=== PATIENT | female | born 1985 ===

== ENCOUNTER 2021-12-10 13:36 | Outpatient (REF) | payer OTHER, SELFPAY ==
[2021-12-10 17:29] LABS: Alanine Aminotransferase 33 U/L (0-31); Anion Gap 13 (12-20); Aspartate Amino Transferase 41 U/L (5-31); Blood Urea Nitrogen 10 mg/dL (9-16); Carbon Dioxide 25 mmol/L (22-29); Chloride 99 mmol/L (96-108); Cholesterol 184 mg/dL; Estimated Glomerular Filt Rate > 60; Glucose Fasting 233 mg/dL (60-99); HDL Cholesterol 38 mg/dL; LDL Cholesterol Calculated 123 mg/dl; Potassium 4.3 mmol/L (3.3-5.1); Sodium 133 mmol/L (135-145); Triglycerides 115 mg/dL
[2021-12-10 17:37] LABS: Creatinine Urine 153.21 mg/dL; Microalbum/Creatinine Ratio Ur 27.4 ug/mg cr
== END 2021-12-10 13:37 | disposition home or self-care (01) ==
LOC: HO.HMGCLDS 13:36
PROVIDERS: Visit Provider Internal Medicine
DX: E66.01 Morbid (severe) obesity due to excess calories (principal); E08.65 Diabetes mellitus due to underlying condition with hyperglycemia
CPT/HCPCS: 36415; 80048; 80061; 82043; 84450; 84460

== ENCOUNTER 2022-12-12 09:33 | Outpatient (REF) | payer OTHER, SELFPAY | END 2022-12-12 09:34 | disposition home or self-care (01) | LOC: HO.HMGCLDS 09:33 | PROVIDERS: PCP Internal Medicine; Visit Provider Internal Medicine | DX: E11.65 Type 2 diabetes mellitus with hyperglycemia (principal); I10 Essential (primary) hypertension | CPT/HCPCS: 36415; 83036; 84450; 84460 ==

== ENCOUNTER 2023-07-29 09:09 | Outpatient (REF) | payer OTHER, SELFPAY ==
[2023-07-29 11:42] LABS: Estimated Average Glucose 189 mg/dL; Hemoglobin A1c % 8.2 % (<6.0)
[2023-07-29 12:04] LABS: Alanine Aminotransferase 24 U/L (0-31); Anion Gap 12 (12-20); Aspartate Amino Transferase 22 U/L (5-31); Blood Urea Nitrogen 9 mg/dL (9-16); Calcium 8.4 mg/dL (8.4-10.2); Carbon Dioxide 31 mmol/L (22-29); Chloride 100 mmol/L (96-108); Cholesterol 170 mg/dL (<200); Estimated Glomerular Filt Rate > 60; Glucose Fasting 195 mg/dL (60-99); HDL Cholesterol 35 mg/dL (>40); LDL Cholesterol Calculated 110 mg/dL (<100); Potassium 3.8 mmol/L (3.3-5.1); Sodium 139 mmol/L (135-145); Triglycerides 126 mg/dL (<150)
[2023-07-29 12:17] LABS: Creatinine Urine 198.37 mg/dL; Microalbum/Creatinine Ratio Ur 13.6 ug/mg cr (<30)
== END 2023-07-29 09:10 | disposition home or self-care (01) ==
LOC: HO.HMGCLDS 09:09
PROVIDERS: PCP Internal Medicine; Visit Provider Internal Medicine
DX: I10 Essential (primary) hypertension (principal); E08.65 Diabetes mellitus due to underlying condition with hyperglycemia; E66.01 Morbid (severe) obesity due to excess calories
CPT/HCPCS: 36415; 80048; 80061; 82043; 82570; 83036; 84450; 84460

== ENCOUNTER 2024-02-18 08:38 | Outpatient (REF) | payer OTHER, SELFPAY ==
[2024-02-18 10:41] LABS: Estimated Average Glucose 192 mg/dL; Hemoglobin A1c % 8.3 % (<6.0)
[2024-02-18 10:51] LABS: Alanine Aminotransferase 19 U/L (0-31); Anion Gap 13 (12-20); Aspartate Amino Transferase 20 U/L (5-31); Blood Urea Nitrogen 9 mg/dL (9-16); Calcium 9.5 mg/dL (8.4-10.2); Carbon Dioxide 26 mmol/L (22-29); Chloride 101 mmol/L (96-108); Cholesterol 139 mg/dL (<200); Estimated Glomerular Filt Rate > 60; Glucose Fasting 202 mg/dL (60-99); HDL Cholesterol 41 mg/dL (>40); LDL Cholesterol Calculated 81 mg/dL (<100); Potassium 4.3 mmol/L (3.3-5.1); Sodium 136 mmol/L (135-145); Triglycerides 89 mg/dL (<150)
== END 2024-02-18 08:39 | disposition home or self-care (01) ==
LOC: HO.HMGCLDS 08:38
PROVIDERS: PCP Internal Medicine; Visit Provider Internal Medicine
DX: I10 Essential (primary) hypertension (principal); E08.65 Diabetes mellitus due to underlying condition with hyperglycemia; E66.01 Morbid (severe) obesity due to excess calories
CPT/HCPCS: 36415; 80048; 80061; 83036; 84450; 84460

== ENCOUNTER → 2024-02-22 09:59 | Outpatient (BNVA) | payer OTHER, SELFPAY | PROVIDERS: PCP Internal Medicine; Visit Provider Internal Medicine ==

== ENCOUNTER 2024-12-07 12:10 | Outpatient (REF) | payer OTHER, SELFPAY ==
--- OUTSIDE RECORDS SUMMARY | 2024-12-07 12:36 | XMS_ITS | Clinical Summary ---
Author Organization [employer] Address [address] [place] [address] Care Team Providers Care Manager Of Case Management Name Role Phone Unavailable Primary Care Provider Unavailabl e Allergies No known active allergies Medications clonazePAM (KlonoPIN) 0.5 MG tablet Take 0.5 mg by mouth if needed each day. 023 Active levocetirizin e (Xyzal) 5 MG tablet TAKE 1 TABLET BY MOUTH EVERY EVENING NEEDED FOR ALLERGY SYMPTOMS 023 Active lisinopril-hy droCHLOROthia zide 10-12.5 MG tablet Take 1 tablet by mouth in the morning. 023 Active metFORMIN XR (Glucophage-X R) 500 MG 24 hr tablet Take 500 mg by mouth 2 times daily. 023 Active venlafaxine XR (Effexor XR) 37.5 MG 24 hr capsule Take by mouth. A ctive Trulicity 0.75 MG/0.5ML solution pen-injector INJECT 0.75 MG SUBCUTANEOUSLY EVERY WEEK 024 Active rosuvastatin (Crestor) 5 MG tablet TAKE 1 TABLET BY MOUTH EVERY DAY FOR 3 MONTHS 024 Active montelukast (Singulair) 10 MG tablet Take by mouth. Ac tive FREESTYLE LITE test strip CHECK FASTING BLOOD SUGAR TWICE A DAY BEFORE A MEAL 025 Active FreeStyle lancets CHECK BLOOD SUGAR DIRECTED TWICE A DAY BEFORE MEALS 024 Active ibuprofen 600 MG tablet Take 1 tablet (600 mg) by mouth every 6 (six) hours if needed for mild pain for up to 20 doses. 20 tablet 025 Active Sodium Fluoride 5000 Sensitive 1.1-5 % gel PLEASE USE PEA SIZE TO BRUSH YOUR TEETH TWICE DAILY. SPIT, DO NOT RINSE. 100 g 025 Active Sod Fluoride-Pota ssium Nitrate 1.1-5 % paste Please use pea size to brush your teeth twice daily. Spit, do not rinse. 112 g 1 024 2024 Discontinued ibuprofen 600 MG tablet Take 1 tablet (600 mg) by mouth every 6 (six) hours if needed for mild pain for up to 20 doses. 20 tablet 024 2024 Discontinued(R eorder (will not trigger notification to Pharmacy)) amoxicillin (Amoxil) 500 MG capsule Take 1 capsule (500 mg) by mouth every 8 (eight) hours for 7 days. 21 capsule 025 2024 Active Problems Problem Noted Date Diagnosed Date Dental plaque 02/03/2024 Dental calculus 02/03/2024 Encounters Date Type Department Care Team Description 11/20/2024 Refill [facility] [address] [place] [address] Paulina Wahl, BDS 11/15/2024 11:00 AM EDT Office Visit [facility] [address] [place] [address] Jeannine Mills DDS 11/10/2024 Telephone [facility] [address] [place], [place] [phone] Cesia Isabel DMD 10/11/2024 Telephone [facility] [address], [place] [phone] Carlee Rodney appt change (CALLED TO PTS APPT NO ANSWER SO A VOICEMAIL WAS LEFT ) 09/07/2024 8:00 AM EDT Office Visit [facility] [address] [place] [address] Carlee Rodney from Last 3 Months Social History Tobacco Use Types Packs/Day Years Used Date Smoking Tobacco: Never Smokeless Tobacco: Never Tobacco Cessation:Counseling Given: Not Answered Alcohol Use Standard Drinks/Week Comments Yes 0 (1 standard drink = 0.6 oz pur e alcohol) social Comments No Sex and Gender Information Value Date Recorded Sex Assigned at Female 04/06/2022 10:22 AM EDT Legal Sex Female 10:22 AM EDT Gender Identity Female 06/23/2023 8:44 AM EST Sexual Orientation Choose not to disclose 2023 8:44 AM EST Last Filed Vital Signs Vital Sign Reading Time Taken Comments Blood Pressure 124/80 09/07/2024 8:08 AM EDT Pulse 65 02/03/2024 9:53 AM EDT Temperature - - Respiratory Rate - - Oxygen Saturation - - Inhaled Oxygen Concentration - - Weight - - Height - - Body Mass Index - - Plan of Treatment Upcoming Encounters Date Type Department Care Team (Late st Contact Info) Description 03/12/2025 8:00 AM EDT Office Visit [facility] [address] [place] [address] Carlee Rodney Health Maintenance Due Date Last Done Comments Depression Screening 1985 HIV Screening 1987 SDOH Screening 1987 Disability Screening 1987 Alcohol/Substance Use Screening 1999 Family Planning (PISQ) 2002 Hepatitis C Screening 2005 DTaP/Tdap/Td Vaccines (1 - Tdap) 2006 Hepatitis B Vaccines (1 of 3 - 19+ 3-dose series) 2006 Pap Smear 01/24/2008 Cervical Cancer Screening 2017 HPV/Cotest 2017 COVID-19 Vaccine ( season) 2024 Influenza Vaccine (Season Ended) 2025 07/30/2017, 03/19/2016 Dental Oral Exam 03/10/2025 09/07/2024, , 06/23/2023, Additional history exists Dental Prophylaxis 03/10/2025 09/07/2024, 0 02/03/2024, 10/19/2018, Additional history exists Dental X-Ray: Bitewings 09/08/2025 09/08/19, 06/23/2023, 12/28/2018, Additional history exists Tobacco Screening 11/15/2025 11/15/2024 Dental X-Ray: Full Mouth 06/24/2026 06/23/2023, 03/07 Zoster Vaccines (1 of 2) 2037 RSV Patients and Patients Aged 60 years or older (1 - 1-dose 75+ series) 2062 HIB Vaccines Aged Out No longer eligi ble based on patient's age to complete this topic HPV Vaccines Aged Out No longer eligi ble based on patient's age to complete this topic Hepatitis A Vaccines Aged Out No long er eligible based on patient's age to complete this topic IPV Vaccines Aged Out No longer eligi ble based on patient's age to complete this topic Meningococcal B Vaccine Aged Out No l onger eligible based on patient's age to complete this topic Meningococcal Vaccine Aged Out No mitchel sunil eligible based on patient's age to complete this topic Pneumococcal Vaccine: Pediatrics (0 to 5 Years) and At-Risk Patients (6 to 49) Years Aged Out No longer eligible based on patient's age to complete this topic RSV under 20 months Aged Out No longe r eligible based on patient's age to complete this topic Rotavirus Vaccines Aged Out No longer eligible based on patient's age to complete this topic Procedures Procedure Name Priority Date/Time Associated Diagnosis Comments 1 EXTRACTION, ERUPTED TOOTH OR EXPOSED ROOT (ELEVATION/FORCEPS REMOVAL) Routine 11/15/2024 11:00 AM EDT COMPREHENSIVE PERIODONTAL EVALUATION - NEW OR ESTABLISHED PATIENT Routine 09/07/2024 8:00 AM EDT PERIODIC ORAL EVALUATION - ESTABLISHED PATIENT Routine 09/07/2024 8:00 AM EDT INTRAORAL - PERIAPICAL FIRST RADIOGRAPHIC IMAGE Routine 09/07/2024 8:00 AM EDT BITEWINGS - 4 RADIOGRAPHIC IMAGES Routine 09/07/2024 8:00 AM EDT ORAL HYGIENE INSTRUCTIONS Routine 2024 8:00 AM EDT CASE PRESENTATION, DETAILED AND EXTENSIVE TREATMENT PLANNING Routine 09/07/2024 8:00 AM EDT PROPHYLAXIS - ADULT Routine 09/07/2024 8 :00 AM EDT INTRAORAL - COMPLETE SERIES OF RADIOGRAPHIC IMAGES Routine 06/23/2023 1:00 PM EST from Last 3 Months or Most Recently Relevant to Health Maintenance Insurance [facility] MEDICAID STAND ADULT
[2024-12-07 13:39] LABS: Hemoglobin A1C 214.8280 umol/L; Total Hemoglobin (HGBA1C) 3586.0830 umol/L
[2024-12-07 14:12] LABS: Anion Gap 13 (12-20); Aspartate Amino Transferase 30 U/L (5-31); Blood Urea Nitrogen 8 mg/dL (9-16); Calcium 9.1 mg/dL (8.4-10.2); Carbon Dioxide 27 mmol/L (22-29); Chloride 101 mmol/L (96-108); Cholesterol 207 mg/dL (<200); Estimated Glomerular Filt Rate > 60; HDL Cholesterol 45 mg/dL (>40); Potassium 3.9 mmol/L (3.3-5.1); Sodium 137 mmol/L (135-145); Triglycerides 162 mg/dL (<150)
[2024-12-07 14:16] LABS: Microalbum/Creatinine Ratio Ur 7.6 ug/mg cr (<30)
== END 2024-12-07 12:11 | disposition home or self-care (01) ==
LOC: HO.HMGCLDS 12:10
PROVIDERS: PCP Internal Medicine; Visit Provider Internal Medicine
DX: I10 Essential (primary) hypertension (principal); E08.65 Diabetes mellitus due to underlying condition with hyperglycemia; E66.01 Morbid (severe) obesity due to excess calories
CPT/HCPCS: 36415; 80048; 80061; 82043; 82570; 83036; 84450

== ENCOUNTER 2024-12-12 08:56 | Outpatient (AMB) | payer OTHER, SELFPAY ==
[2024-12-12 09:02] VITALS: BP 130/86; PULSE 99; RESP 16; TEMP 36.7; O2SAT 99; BMI 35.2
--- NOTE | 2024-12-12 09:02 | MHC.PC.OV ---
Vital Signs 12/12/24 09:02 Height 5 ft 5.5 in Weight 215 lb BMI 35.2 BP 130/86 Blood Pressure Location Lt brachial Position Sitting Respiration 16 Pulse 99 Pulse Source Pulse Oximeter Temp 98.1 F Temp Source Oral Pulse Oximetry (%) 99 Oxygen Delivery Method Room Air Intake Visit Reasons: med, DM followup per Dr Navarrete Intake Note: Pt is here today for her f/u DM Allergies penicillin V Allergy (Unknown, Verified 12/12/24 09:14) family hx No Known Allergies Allergy (Verified 12/12/24 09:14) Medication List - Last Reconciled 12/12/24 by Shira Reis MD blood sugar diagnostic (FreeStyle Lite Strips) check fasting blood sugar twice a day before a meal blood-glucose meter (FreeStyle Lite Meter kit) As directed dulaglutide (Trulicity) 0.75 mg (0.5 mL) subcut QWEEK lancets (FreeStyle Lancets) check blood sugar As directed twice a day before meals levocetirizine 5 mg PO QPM PRN lisinopril-hydrochlorothiazide 10-12.5 mg 1 tab PO DAILY metformin 1,000 mg PO BIDWMEAL 3 months venlafaxine ER 300 mg (2 x 150 mg) PO QAM Tobacco use date assessed: 12/12/24 Dental Screening Dental Screen Date: 12/12/24 Did you have a dental visit in the last 12 months?: Yes Did you have a dental problem in the last 6 months where you did not have access to dental care?: No Was dental information given to patient?: Patient has dentist HPI med, DM followup per Dr Navarrete HPI Details 39-year-old lady with history of poorly controlled diabetes mellitus, morbid obesity, and hypertension, here today for follow-up. Currently on Trulicity 0.75 mg once weekly which she admits to sometimes forgetting to take, and is on metformin 5000 mg 1 tablet twice a day. She has not really been very compliant with her diet, eats a lot of processed foods and food in the go, but has been more active as she started working at an [employer], is currently on the hourly shift manager. She is overdue for her diabetes retinopathy screening, has an appointment with [facility] in July 2025 already scheduled. Latest fasting labs showed improvement in her diabetes control with hemoglobin A1c now at 7.6%, but fasting lipids showed elevated triglycerides and LDL cholesterol. Blood pressure stable and controlled on lisinopril HCTZ. Complaining of intermittent episodes of sharp pulling pain on dorsal lateral aspect of left foot. This started after accidentally twisting her left foot playing soccer in March 2025. Patient states she gets pain when she is standing or walking for extended periods of time. [facility] Medical History (Updated 12/12/24 @ 09:48 by Shira Reis MD) Environmental and seasonal allergies Mixed dyslipidemia Essential hypertension Anxiety and depression Morbid obesity due to excess calories Diabetes mellitus due to underlying condition, uncontrolled, with hyperglycemia Family History Mother Diabetes mellitus Endometrial cancer Morbid obesity Dyslipidemia Anxiety and depression Essential hypertension Brother Mental health disorder Social History Housing: House Patient Tobacco Use Status: Never used Tobacco e-Cigarette/Vaping Use: Never Used service: No Current occupational status: employed Cognitive needs: No Hearing needs: No Vision needs: Yes Questionnaire PHQ-9 Over the last 2 weeks, how often have you been bothered by any of the following problems? 1. Little interest or pleasure in doing things: not at all 2. Feeling down, depressed, or hopeless: several days 3. Trouble falling or staying asleep, or sleeping too much: several days 4. Feeling tired or having little energy: several days 5. Poor appetite or overeating: not at all 6. Feeling bad about yourself - or that you are a failure or have let yourself or your family down: not at all 7. Trouble concentrating on things, such as reading the newspaper or watching television: not at all 8. Moving or speaking so slowly that other people could have noticed. Or the opposite - being so fidgety or restless that you have been moving around a lot more than usual: not at all 9. Thoughts that you would be better off or of hurting yourself in some way: not at all Total score: 3 Depression Screening Interpretation: Positive (atul Leonard , currently on venlafaxine) Depression Screening Follow-up: Existing condition, In treatment and Community Mental Health Worker F/U Depression Screening Done: Yes 90116 - PHQ-9 Billing: Yes Source: Developed by Drs. Vinod Skinner, Connie Rivera, Carlos Enrique Cruz and colleagues, with an educational hector from [employer]. Thrive Questionnaire Date Thrive assessed: 12/05/24 I am a: Patient What is your living situation today?: I have a steady place to live Within the past 12 months, did the food you bought not last and you didn't have the money to get more?: Sometimes True Within the past 12 months, did you worry whether your food would run out before you got money to buy more?: Sometimes True Do you have trouble paying for medicines?: No Do you have trouble getting transportation to medical appointments?: No Do you have trouble paying your heating and electricity bill?: No Do you have trouble taking care of your child, family member or friend?: No Do you have trouble with day-to-day activities such as bathing, preparing meals, shopping, managing finances, etc.?: No Are you currently unemployed and looking for a job?: Yes Are you interested in more education?: Yes Please select the resources that you would like help with: None Currently or been in a relationship where the following occur: I choose not to answer THRIVE Score: 2 AUDIT C Alcohol Use Questionnaire (AUDIT-C) 1. How often do you have a drink containing alcohol?: Monthly or less 2. How many drinks containing alcohol do you have on a typical day when you are drinking?: 1 or 2 3. How often do you have six or more drinks on one occasion?: Never Total Score: 1 KASEY-7 AMB Questionnaire KASEY-7 Date KASEY - 7 assessed: 12/12/24 Feeling nervous, anxious, or on edge: 1 = Several days Not being able to stop or control worryin = More than half the days Worrying too much about different things: 2 = More than half the days Trouble relaxin = Several days Being so restless that it is hard to sit still: 0 = Not at all Becoming easily annoyed or irritable: 1 = Several days Feeling afraid as if something awful might happen: 0 = Not at all Total KASEY-7 score (0-4 normal; 5-9 mild; 10-14 moderate; 15-21 severe): 7 Source: Developed by Drs. Vinod Skinner, Connie Rivera, Carlos Enrique Cruz and colleagues, with an educational hector from [employer]. KASEY-7 Assessment Billing KASEY-7 Assessment Tool: KASEY-7 Assessment 02201 (Currently atul Leonard, currently on venlafaxine) Review of Systems Const Denies body aches, Denies fatigue, Denies fever(s), Denies headache(s) and Denies weakness Eyes Denies change in vision ENT Denies dizziness, Denies headache(s), Denies nasal congestion and Denies sore throat Card Denies chest pain, Denies lightheadedness, Denies palpitations and Denies dyspnea Resp Denies chest congestion, Denies cough and Denies dyspnea GI Denies abdominal pain, Denies change in bowel habits and Denies heartburn Denies hematuria, Denies urinary frequency, Denies dysuria and Denies urinary urgency Musc Reports as per HPI Skin/Breast Denies rash Neuro Denies dizziness, Denies headache(s) and Denies weakness Psych Reports as per HPI Endo Denies fatigue, Reports polydipsia, Reports polyuria and Denies palpitations Aris/Lymph Reports no additional complaints Aller/Immun Reports seasonal rhinorrhea (Takes levocetirizine) Physical exam (Primary Care) Vital Signs: Last Vital Signs Temp 98.1 F 12/12/24 09:02 Pulse 99 12/12/24 09:02 Resp 16 12/12/24 09:02 BP 130/86 12/12/24 09:02 Pulse Ox 99 12/12/24 09:02 Oxygen Delivery Method Room Air 12/12/24 09:02 BMI result Body Mass Index 35.2 BMI Assessment/Plan discussion: High BMI High, discussed plan: lifestyle, weight reduction, dietary and physical activity Tobacco/Smoking Status: Tobacco use Status Tobacco use date assessed 12/12/24 12/12/24 09:07 Patient Tobacco Use Status Never used Tobacco 12/12/24 09:07 e-Cigarette/Vaping Use Never Used 12/12/24 09:07 PHQ-9: PHQ-9 Score PHQ-9: Total score 3 12/12/24 09:42 Depression Screening Interpretation: Positive (seedewayne Cervanteslilly , currently on venlafaxine) Depression Screening Follow-up: Existing condition, In treatment and Community Mental Health Worker F/U Thrive Assessment: Date of Thrive Assessment Date Thrive assessed 12/05/24 12/12/24 09:07 Currently or been in a relationship where the following occur: I choose not to answer Const General: no acute distress and alert Nutritional Appearance: obese Orientation/consciousness: patient oriented x3 HENMT Ears: external ears normal General nose exam: Normal external nose present and No nasal discharge present Mouth: oropharynx normal and moist mucous membranes Eyes General: appearance normal, both eyes and all related structures Neck Neck: Yes full ROM, Yes no lymphadenopathy and Yes supple Resp Effort & Inspection: normal respiratory effort and able to speak in complete sentences Auscultation: clear to auscultation bilaterally Cardio Rate: regular rate Rhythm: regular rhythm Heart sounds: S1 normal heart sound present and S2 normal heart sound present GI Palpation (GI): Soft to palpation, nontender and no masses Auscultation: normal bowel sounds Back/Spine/Pelvis Back: No back tenderness Skin General skin exam: no rashes or lesions noted Neuro General: patient oriented x3, gait normal, tone normal, moves all extremities, Normal light touch and pain sensation and no focal motor deficits Cranial nerves: Yes CN's II-XII intact bilaterally Cognition (Neuro): normal cognition Extrem Other: Slight tenderness on dorsal lateral aspect of left foot on hyperextension foot General: Yes full ROM, Yes no joint enlargement, Yes no clubbing, cyanosis or edema and Yes no calf tenderness Psych Appearance: grossly normal and well kempt Mental Status: mental status grossly normal Speech and movement: Normal speech and movement present Affect: normal affect Attitude: cooperative Thought process: Normal thought process present Thought content: Normal thought content present Results Reviewed Results Reviewed: Laboratory Tests 12/07/24 12:13 Estimat Average Glucose 171 Hemoglobin A1c % 7.6 H Name: Mirna Villafana Age/Sex: 39/F : 1985 Unit#: [id number] Attend Dr: Shira Reis MD Re12/07/24 Status: DEP REF Location: [facility] Disch: SPEC : [id number] YAMILA: 12/07/24-1213 STATUS: COMP REQ : [id number] RECD: 12/07/24-[address]: Shira Reis MD COMP: 12/07/24-1412 ENTERED: 12/07/24-[address]: ORDERED: Met Prof Fast, AST, Lipid Panel Test Result Flag Reference Sodium 137 135-145 mmol/L Potassium 3.9 3.3-5.1 mmol/L CL 101 96-108 mmol/L CO2 27 22-29 mmol/L Gap 13 12-20 BUN 8 L 9-16 mg/dL Creat 0.56 0.5-1.4 mg/dL eGFR > 60 Chronic Kidney Disease: Estimated GFR < 60 mL/min/1.73m2 Severe Kidney Disease: Estimated GFR < 15 mL/min/1.73m2 FBS 178 H 60-99 mg/dL A fasting glucose of 126 mg/dl or greater on more than one occasion is considered diagnostic of diabetes. CA 9.1 8.4-10.2 mg/dL AST (GOT) 30 5-31 U/L Triglyceride 162 H <150 mg/dL Desirable Triglyceride: less than 150 mg/dL Borderline High Triglyceride 150-199 mg/dL High Triglyceride: 200-499 mg/dL Very High Triglyceride: greater than or equal to 5OO mg/dL Cholesterol 207 H <200 mg/dL Desirable Cholesterol: less than 200 mg/dL Borderline High Cholesterol: 200-239 mg/dL High Cholesterol: greater than 239 mg/dL LDL Calculated 130 H <100 mg/dL Desirable LDL: less than 100 mg/dL Near Optimal/Above Optimal LDL: 110-129 mg/dL Borderline High LDL: 130-159 mg/dL High LDL: 160-189 mg/dL Very High LDL: greater than or equal to 190 mg/dL HDL 45 >40 mg/dL Desirable HDL: greater than 40 mg/dL Note: This HDL assay may give artificially low results in patients with liver disease. Laboratory Tests 12/07/24 12:20 Urine Creatinine 131.53 Urine Microalbumin 10.0 Microalb/Creat Ratio 7.6 Coding Level of Care Code Est Pt Level 4 (94701) Diagnoses Essential hypertension I10 Diabetes mellitus due to underlying condition, uncontrolled, with hyperglycemia E08.65 Morbid obesity due to excess calories E66.01 Chronic pain in left foot M79.672; G89.29 Anxiety and depression F41.9; F32.A Mixed dyslipidemia E78.2 Environmental and seasonal allergies J30.89 Additional Codes KASEY-7 Assessment Billing - KASEY-7 Assessment Tool: KASEY-7 Assessment 82186 ([id number]) PHQ-9 - 60423 - PHQ-9 Billing: Yes ([id number]) Assessment & Plan Assessment & Plan (1) Essential hypertension: Code(s): I10 - Essential (primary) hypertension Category: Medical Plan: Blood pressure at goal of less than 130/80. Continue with lisinopril-HCTZ 10-12.5 mg taken once a day. Reinforced importance of following a low sodium diet, getting regular exercise, and lowering stress levels. (2) Diabetes mellitus due to underlying condition, uncontrolled, with hyperglycemia: Code(s): E08.65 - Diabetes mellitus due to underlying condition with hyperglycemia Category: Medical Plan: Increase dose of Trulicity to 1.5 mg injected once a week, continue with metformin 1000 mg 1 tablet twice a day and reinforced importance of checking glucose levels daily as directed. Reinforced importance of following a diabetic diet and getting regular exercise. He has an appointment for her diabetes retinopathy screening and eye exam on July 2025 at [facility] per patient. Recommended to get yearly flu shot and pneumonia vaccine but patient declined (3) Morbid obesity due to excess calories: Code(s): E66.01 - Morbid (severe) obesity due to excess calories Category: Medical Plan: . Discussed need to increase activity and weight reduction. Recommended focusing on improving health instead of dieting. Mediterranean diet is a healthy diet that helps, limit food high in fat, sugar, and calories. Eat slowly, pay attention to portion sizes, plan your meals ahead of time, start regular physical activity, at least 150 minutes of moderate intensity exercise, or 90 minutes per week of vigorous exercise. Keeping a food diary, tracking what you eat and your physical activity can help assess what improvements you can make. (4) Chronic pain in left foot: Code(s): M79.672 - Pain in left foot; G89.29 - Other chronic pain Plan: X-ray of left foot ordered, try massaging diclofenac gel 1% to affected area 4 times a day as needed only applying Salonpas patch to affected area before going to work at [employer]. (5) Anxiety and depression: Code(s): F41.9 - Anxiety disorder, unspecified; F32.A - Depression, unspecified Category: Medical Plan: Currently followed by psychiatrist, Lynne Leonard, currently on venlafaxine (6) Mixed dyslipidemia: Code(s): E78.2 - Mixed hyperlipidemia Category: Medical Plan: Started on rosuvastatin 5 mg 1 tablet taken 3 times a week reinforced importance of following a low-cholesterol diet and getting regular exercise, will repeat another fasting lipid panel in 3 months (7) Environmental and seasonal allergies: Code(s): J30.89 - Other allergic rhinitis Category: Medical Plan: Refill prescription for levocetirizine 5 mg daily Orders: Orders XR foot LT min 3V Today G89.29 - Other chronic pain, M79.672 - Pain in left foot Hemoglobin A1c 03/10/25 E08.65 - Diabetes mellitus due to underlying condition with hyperglycemia, E66.01 - Morbid (severe) obesity due to excess calories, E78.2 - Mixed hyperlipidemia, I10 - Essential (primary) hypertension Alanine Aminotransferase 03/10/25 E08.65 - Diabetes mellitus due to underlying condition with hyperglycemia, E66.01 - Morbid (severe) obesity due to excess calories, E78.2 - Mixed hyperlipidemia, I10 - Essential (primary) hypertension Basic Metabolic Panel Fasting 03/10/25 E08.65 - Diabetes mellitus due to underlying condition with hyperglycemia, E66.01 - Morbid (severe) obesity due to excess calories, E78.2 - Mixed hyperlipidemia, I10 - Essential (primary) hypertension Aspartate Amino Transferase 03/10/25 E08.65 - Diabetes mellitus due to underlying condition with hyperglycemia, E66.01 - Morbid (severe) obesity due to excess calories, E78.2 - Mixed hyperlipidemia, I10 - Essential (primary) hypertension Lipid Panel 03/10/25 E08.65 - Diabetes mellitus due to underlying condition with hyperglycemia, E66.01 - Morbid (severe) obesity due to excess calories, E78.2 - Mixed hyperlipidemia, I10 - Essential (primary) hypertension Medications: New dulaglutide (Trulicity) 1.5 mg (0.5 mL) subcut QWEEK 2 mL 6RF E08.65 - Diabetes mellitus due to underlying condition with hyperglycemia rosuvastatin 5 mg PO 3XW 39 tabs 2RF 3 months E08.65 - Diabetes mellitus due to underlying condition with hyperglycemia diclofenac sodium 1% apply to single elbow, wrist or hand; for hand includes palm/fingers/back of hand 2 grams topical QID PRN 100 grams 1RF pain Refilled levocetirizine 5 mg PO QPM PRN 90 tabs 3RF allergy symptoms lisinopril-hydrochlorothiazide 10-12.5 mg 1 tab PO DAILY 90 tabs 3RF Discontinued dulaglutide (Trulicity) Discontinued Reason: Doctor's Order 0.75 mg (0.5 mL) subcut QWEEK 6 mL 0RF E08.65 - Diabetes mellitus due to underlying condition with hyperglycemia
--- OUTSIDE RECORDS SUMMARY | 2024-12-12 09:15 | XMS_ITS | Clinical Summary ---
Author Organization [employer] Address [address] [facility] 7t [place] [address] Care Team Providers Care Towel Distributor Name Role Phone Unavailable Primary Care Provider [...] Type Department Care Team Description 11/20/2024 Refill [facility] [address] [place] [address] Paulina Wahl, BDS 11/15/2024 11:00 AM EDT Office Visit [facility] [address] [place] [address] Jeannine Mills DDS 11/10/2024 Telephone [facility] [address] [place], [place] [phone] Cesia Isabel DMD 10/11/2024 Telephone [facility] [address] [place], [place] [phone] Carlee Rodney appt change (CALLED TO PTS APPT NO ANSWER SO A VOICEMAIL WAS LEFT ) from Last 3 Months Social History Tobacco [...] Upcoming Encounters Date Type Department Care Team ([facility] st Contact Info) Description 03/12/2025 8:00 AM EDT Office Visit [facility] [address] [place] [address] Carlee Rodney Health Maintenance Due Date Last [...] COVID-19 Vaccine ( season) 2024 Influenza Vaccine (#1) 2025 07/30/2017, 2015 Dental Oral Exam 03/10/2025 09/07/2024, , 06/23/2023, [...] (ELEVATION/FORCEPS REMOVAL) Routine 11/15/2024 11:00 AM EDT PROPHYLAXIS - ADULT Routine 09/07/2024 8 :00 AM EDT BITEWINGS - 4 RADIOGRAPHIC IMAGES Routine 09/07/2024 8:00 AM EDT PERIODIC ORAL EVALUATION - ESTABLISHED PATIENT Routine 09/07/2024 8:00 AM EDT INTRAORAL - COMPLETE SERIES OF RADIOGRAPHIC IMAGES Routine 06/23/2023 1:00 PM EST from Last 3 Months or Most Recently Relevant to Health Maintenance Insurance [facility] MEDICAID STAND ADULT * Guarantor: Mirna Villafana Account Type Relation to Patient Date of Phone Billing Address Personal/Family Self [address] [place]
== END 2024-12-12 09:41 | disposition home or self-care (01) ==
LOC: HO.HMCC 08:56
PROVIDERS: PCP Internal Medicine; Visit Provider Internal Medicine
DX: I10 Essential (primary) hypertension (principal); E08.65 Diabetes mellitus due to underlying condition with hyperglycemia; E66.01 Morbid (severe) obesity due to excess calories; Z68.35 Body mass index [BMI] 35.0-35.9, adult; M79.672 Pain in left foot; G89.29 Other chronic pain; F41.9 Anxiety disorder, unspecified; F32.A Depression, unspecified; E78.2 Mixed hyperlipidemia; J30.89 Other allergic rhinitis

== ENCOUNTER 2024-12-12 08:56 | Outpatient (REF) | payer OTHER, SELFPAY ==
--- NOTE | ~2024-12-12 | XR_ITS ---
EXAMINATION: XR FOOT, LEFT CLINICAL INFORMATION: M79.672 - Pain in left foot COMPARISON: None available. TECHNIQUE: AP, lateral, and oblique views of the left foot. FINDINGS: Transient spaces are preserved. There are no osteophytes or joint space narrowing. There are no erosions. There is a small enthesophyte at the Achilles insertion on calcaneus. XR/XR foot LT min 3V IMPRESSION: Small calcaneal spur of uncertain significance. Electronically signed by: Daniel Ma MD 12/12/2024 10:03 AM EDT
== END 2024-12-12 08:57 | disposition home or self-care (01) ==
LOC: HO.HMGCX 08:56
PROVIDERS: PCP Internal Medicine; Visit Provider Internal Medicine
DX: I10 Essential (primary) hypertension (principal); E08.65 Diabetes mellitus due to underlying condition with hyperglycemia; E66.01 Morbid (severe) obesity due to excess calories; M79.672 Pain in left foot; G89.29 Other chronic pain; F41.9 Anxiety disorder, unspecified; F32.A Depression, unspecified; E78.2 Mixed hyperlipidemia; J30.89 Other allergic rhinitis; Z79.84 Long term (current) use of oral hypoglycemic drugs; Z79.899 Other long term (current) drug therapy; Z13.31 Encounter for screening for depression; Z13.39 Encounter for screening examination for other mental health and behavioral disorders
CPT/HCPCS: 73630; 96127; 99212

== ENCOUNTER → 2024-12-12 09:45 | Outpatient (BNV) | payer OTHER, SELFPAY | PROVIDERS: PCP Internal Medicine; Visit Provider Radiology Diagnostic Radiology | DX: M77.32 Calcaneal spur, left foot (principal) | CPT/HCPCS: 73630 ==

== ENCOUNTER 2025-01-15 14:03 | Outpatient (AMB) | payer OTHER, SELFPAY ==
[2025-01-15 14:05] VITALS: BP 144/86; PULSE 106; TEMP 36.9; O2SAT 96; BMI 36.4
--- NOTE | 2025-01-15 14:05 | AM.OFFWIN_ITS ---
Intake Vital Signs 01/15/25 14:05 Height 5 ft 5.5 in Weight 222 lb 2 oz BMI 36.4 BP 144/86 H Blood Pressure Location Lt brachial Position Sitting Pulse 106 H Pulse Source Pulse Oximeter Temp 98.4 F Temp Source Oral Pulse Oximetry (%) 96 Oxygen Delivery Method Room Air Intake Visit Reasons: EP Eye swelling (better now), work note Patient Tobacco Use Status: Never used Tobacco Move Coordinator Required: No Allergies penicillin V Allergy (Unknown, Verified 12/12/24 09:14) family hx No Known Allergies Allergy (Verified 12/12/24 09:14) Do you need a note to return to daycare/school/sports/work: Yes HPI HPI Comments History of Present Illness Details History of Present Illness - The patient is a 39-year-old female pr esenting with symptoms of eye swelling and itching. - The patient experienced significant sw elling in the eye after rubbing it due to itchiness, which obstructed her vision temporarily. - The symptoms began the previous night, with the other eye experiencing mild swelling the night before. - The patient reports no current symptom s of itching, burning, crusting, or discharge. - The patient has not taken her allergy medication, levocetirizine, for some time due to issues with pharmacy refills and personal time constraints. - The patient works 10-hour night shifts at [employer] in the [employer] at night. - She denies FB, contacts, redness, blur ry vision, discharge, or cold symptoms. Physical Exam General: Cooperative, healthy appearing, comfortable, no acute distress and well developed Nose: Normal external nose present Face and sinus: Normal facial exam. No sinus tenderness noted. Eyes: Mild swelling to the left upper eyelid. Sclera is white, conjunctiva is pink. No discharge noted. No FB noted. Neck: Normal visual inspection and Yes full ROM Respiratory: Normal respiratory effort and able to speak in complete sentences. Clear to auscultation bilaterally No w/r/r noted. Cardiovascular: Regular rate and rhythm. Normal S1 and S2. No m/r/g noted. Skin: No rashes or lesions noted Patient was informed and verbally consented to the use of an ambient scribe for clinic note documentation during this visit. [facility] Medical History (Updated 12/12/24 @ 09:48 by Shira Reis MD) Environmental and seasonal allergies Mixed dyslipidemia Essential hypertension Anxiety and depression Morbid obesity due to excess calories Diabetes mellitus due to underlying condition, uncontrolled, with hyperglycemia Family History Mother Diabetes mellitus Endometrial cancer Morbid obesity Dyslipidemia Anxiety and depression Essential hypertension Brother Mental health disorder Social History Housing: House Patient Tobacco Use Status: Never used Tobacco e-Cigarette/Vaping Use: Never Used service: No Current occupational status: employed Cognitive needs: No Hearing needs: No Vision needs: Yes Review of Systems Const All systems reviewed & are unremarkable except as noted in HPI and below Physical Exam Vital Signs: Last Vital Signs Temp 98.4 F 01/15/25 14:05 Pulse 106 H 01/15/25 14:05 BP 144/86 H 01/15/25 14:05 Pulse Ox 96 01/15/25 14:05 Oxygen Delivery Method Room Air 01/15/25 14:05 BMI result Body Mass Index 36.4 Assessment & Plan Assessment & Plan (1) Eye swelling, left: Code(s): H57.89 - Other specified disorders of eye and adnexa Plan Most likely allergies vs chemosis vs conjunctivitis vs FB Plan - Refill prescription for levocetirizine 5 mg to manage allergic symptoms. - Provide a work note for absence due to eye swelling and impaired vision. Medications: New levocetirizine 5 mg PO DAILY 90 tabs 4RF Coding Level of Care Code Est Pt Level 3 (14143) Diagnoses Eye swelling, left H57.89
--- OUTSIDE RECORDS SUMMARY | 2025-01-15 14:30 | XMS_ITS | Clinical Summary ---
Author Organization [employer] Address [address] [facility] 7t [place] [address] Care Team Providers Care Ruby On Rails Developer Name Role Phone Unavailable Primary Care Provider Unavailabl e Allergies No known active allergies Medications clonazePAM (KlonoPIN) 0.5 MG tablet Take 0.5 mg by mouth if needed each day. 3 Active levocetirizine (Xyzal) 5 MG tablet TAKE 1 TABLET BY MOUTH EVERY EVENING NEEDED FOR ALLERGY SYMPTOMS 3 Active lisinopril-hyd roCHLOROthiazi de 10-12.5 MG tablet Take 1 tablet by mouth in the morning. 3 Active metFORMIN XR (Glucophage-XR ) 500 MG 24 hr tablet Take 500 mg by mouth 2 times daily. 3 Active venlafaxine XR (Effexor XR) 37.5 MG 24 hr capsule Take by mouth. Activ e Trulicity 0.75 MG/0.5ML solution pen-injector INJECT 0.75 MG SUBCUTANEOUSLY EVERY WEEK 4 Active rosuvastatin (Crestor) 5 MG tablet TAKE 1 TABLET BY MOUTH EVERY DAY FOR 3 MONTHS 4 Active montelukast (Singulair) 10 MG tablet Take by mouth. Activ e FREESTYLE LITE test strip CHECK FASTING BLOOD SUGAR TWICE A DAY BEFORE A MEAL 5 Active FreeStyle lancets CHECK BLOOD SUGAR DIRECTED TWICE A DAY BEFORE MEALS 4 Active ibuprofen 600 MG tablet Take 1 tablet (600 mg) by mouth every 6 (six) hours if needed for mild pain for up to 20 doses. 20 tablet 5 Active Sodium Fluoride 5000 Sensitive 1.1-5 % gel PLEASE USE PEA SIZE TO BRUSH YOUR TEETH TWICE DAILY. SPIT, DO NOT RINSE. 100 g Active Active Problems Problem Noted Date Diagnosed Date Dental plaque 02/03/2024 Dental calculus 02/03/2024 Encounters Date Type Department Care Team Description 11/20/2024 Refill [facility] [address] [place] [address] Maryuri Paulina, BDS 11/15/2024 11:00 AM EDT Office Visit [facility] [address] [place] [address] Jeannine Mills, DDS 11/10/2024 Telephone [facility] [address] [place], [place] [phone] Cesia Isabel DMD from Last 3 Months Social History Tobacco [...] Description 03/12/2025 8:00 AM EDT Office Visit [facility] [address] [place] [address] Carlee Rodney Health Maintenance Due Date Last Done Comments Depression Screening 1987 HIV Screening 1987 SDOH Screening 1987 Disability Screening 1987 Alcohol/Substance Use Screening 1999 Family Planning (PISQ) 2002 HPV Vaccines (1 - 3-dose series) 2002 Hepatitis C Screening 2005 DTaP/Tdap/Td Vaccines (1 - Tdap) 2006 Hepatitis B Vaccines (1 of 3 - 19+ 3-dose series) 2006 Pap Smear 01/24/2008 Cervical Cancer Screening 2017 HPV/Cotest 2017 COVID-19 Vaccine (1 - 2023- season) 2024 Influenza Vaccine (#1) 2025 07/30/2017, [...] Most Recently Relevant to Health Maintenance Insurance * Guarantor: Mirna Villafana Account Type Relation to Patient Date of Phone Billing Address Personal/Family Self [address] [place]
== END 2025-01-15 14:55 | disposition home or self-care (01) ==
PROVIDERS: PCP Internal Medicine; Visit Provider Physician Assistant Medical
DX: H57.89 Other specified disorders of eye and adnexa (principal)

== ENCOUNTER → 2025-01-15 14:03 | Outpatient (BNVA) | payer OTHER, SELFPAY | PROVIDERS: PCP Internal Medicine; Visit Provider Physician Assistant Medical | DX: I10 Essential (primary) hypertension (principal); H57.89 Other specified disorders of eye and adnexa; L29.9 Pruritus, unspecified | CPT/HCPCS: 99212 ==

== ENCOUNTER 2025-03-21 11:50 | Outpatient (REF) | payer OTHER, SELFPAY ==
[2025-03-22 04:19] LABS: Syphilis Screen Nonreactive (Nonreactive)
[2025-03-22 04:23] LABS: Bacterial Vaginosis PCR NEGATIVE (Negative); Candida Group PCR NOT DETECTED (Not Detect); Candida glab krusei PCR NOT DETECTED (Not Detect); Trichomonas vaginalis PCR NOT DETECTED (Not Detect)
[2025-03-22 04:45] LABS: CT PCR Urine NOT DETECTED (Not Detect.); NG PCR Urine NOT DETECTED (Not Detect.)
[2025-03-22 04:51] LABS: HIV Num 1 0.04 S/CO (0.00-0.99); ~HepC Num1 0.09 S/CO (0.00-0.79); ~Hepatitis C Antibody Nonreactive (Nonreactive)
== END 2025-03-21 11:51 | disposition home or self-care (01) ==
LOC: HO.HMGCLDS 11:50
PROVIDERS: PCP Internal Medicine; Visit Provider Physician Assistant Medical
DX: A64 Unspecified sexually transmitted disease (principal); Z20.2 Contact with and (suspected) exposure to infections with a predominantly sexual mode of transmission; Z11.4 Encounter for screening for human immunodeficiency virus [HIV]; Z11.59 Encounter for screening for other viral diseases
CPT/HCPCS: 36415; 81515; 86780; 86803; 87389; 87491; 87591; 99212

== ENCOUNTER 2025-03-21 11:50 | Outpatient (AMB) | payer OTHER, SELFPAY ==
[2025-03-21 12:38] VITALS: BP 130/82; PULSE 96; RESP 16; O2SAT 97; BMI 36.2
--- NOTE | 2025-03-21 12:38 | AM.OFFWIN_ITS ---
Intake Vital Signs 03/21/25 12:38 Height 5 ft 5.5 in Weight 221 lb BMI 36.2 BP 130/82 Blood Pressure Location Lt brachial Position Sitting Respiration 16 Pulse 96 Pulse Source Pulse Oximeter Pulse Oximetry (%) 97 Oxygen Delivery Method Room Air Intake Visit Reasons: ep vaginal testing for std Patient Tobacco Use Status: Never used Tobacco Accompanied by: Self / Same As Patient Allergies penicillin V Allergy (Unknown, Verified 03/21/25 12:47) family hx No Known Allergies Allergy (Verified 03/21/25 12:47) HPI HPI Comments History of Present Illness Details History of Present Illness - The patient is a 40-year-old female pr esenting with STI screening. - The patient requested STI screening, i ncluding tests for chlamydia, gonorrhea, HIV, and hepatitis, as a precautionary measure. - She last had intercourse 3 weeks with a new partner after not being active for a year. - She has no symptoms. Physical Exam General: Cooperative, healthy appearing, comfortable, no acute distress and well developed Orientation: Patient oriented x3 Limitations: No limitations Respiratory: Normal respiratory effort and able to speak in complete sentences. Clear to auscultation bilaterally Cardiovascular: Regular rate and rhythm. Normal S1 and S2 GI: Normal to inspection. Soft to palpation and nontender. Negative CVA tenderness noted Patient was informed and verbally consented to the use of an ambient scribe for clinic note documentation during this visit. [facility] Medical History (Updated 12/12/24 @ 09:48 by Shira Reis MD) Environmental and seasonal allergies Mixed dyslipidemia Essential hypertension Anxiety and depression Morbid obesity due to excess calories Diabetes mellitus due to underlying condition, uncontrolled, with hyperglycemia Family History Mother Diabetes mellitus Endometrial cancer Morbid obesity Dyslipidemia Anxiety and depression Essential hypertension Brother Mental health disorder Social History Housing: House Patient Tobacco Use Status: Never used Tobacco e-Cigarette/Vaping Use: Never Used service: No Current occupational status: employed Cognitive needs: No Hearing needs: No Vision needs: Yes Review of Systems Const All systems reviewed & are unremarkable except as noted in HPI and below Physical Exam Vital Signs: Last Vital Signs Pulse 96 03/21/25 12:38 Resp 16 03/21/25 12:38 BP 130/82 03/21/25 12:38 Pulse Ox 97 03/21/25 12:38 Oxygen Delivery Method Room Air 03/21/25 12:38 BMI result Body Mass Index 36.2 Assessment & Plan Assessment & Plan (1) STD (female): Code(s): A64 - Unspecified sexually transmitted disease Plan Most likely std screening plan - The patient requested comprehensive STI screening, including tests for chlamydia, gonorrhea, HIV, and hepatitis. - will call her with the results - continue with safe sex practices Orders: Orders Bacterial Vaginosis Panel Today Z11.3 - Encounter for screening for infections with a predominantly sexual mode of transmission HIV Ab/Ag Today Z11.3 - Encounter for screening for infections with a predominantly sexual mode of transmission Syphilis Screen Today Z11.3 - Encounter for screening for infections with a predominantly sexual mode of transmission Hepatitis C Antibody Today Z11.3 - Encounter for screening for infections with a predominantly sexual mode of transmission CT NG by PCR Urine Today Z11.3 - Encounter for screening for infections with a predominantly sexual mode of transmission Coding Level of Care Code Est Pt Level 3 (24712) Diagnoses STD (female) A64
--- OUTSIDE RECORDS SUMMARY | 2025-03-21 15:03 | XMS_ITS | Encounter Summary ---
Author Organization [employer] Address [address] [place] [address] 7 [place] [address] Care Team Providers Care Quality Improvement Consultant Name Role Phone Unavailable Primary Care Provider Unavailabl e Reason for Visit * Reason Onset Date Comments aptp rs office cancelled 02/15/2025 Encounter Details Date Type Department Care Team (Late st Contact Info) Description 02/15/2025 Telephone [facility] [address] [place] [address] Carlee Rodney aptp rs office cancelled Social History Tobacco Use Types Packs/Day Years Used Date Smoking Tobacco: Never Smokeless Tobacco: Never Alcohol Use Standard Drinks/Week Comments Yes 0 (1 standard drink = 0.6 oz pur e alcohol) social Comments No Sex and Gender Information Value Date Recorded Sex Assigned at Female 04/06/2022 10:22 AM EDT Legal Sex Female 10:22 AM EDT Gender Identity Female 06/23/2023 8:44 AM EST Sexual Orientation Choose not to disclose 2023 8:44 AM EST documented as of this encounter Miscellaneous Notes * Telephone Encounter - Sonia Holman - 02/15/2025 9:58 AM EDT Hygiene appt cancelled due to provider being out. Currently hygiene schedule not available on PAR side due to template update. Please reach out to patient to ross WATKINS documented in this encounter Plan of Treatment Upcoming Encounters Date Type Department Care Team (Late st Contact Info) Description 04/04/2025 2:00 PM EDT Office Visit [facility] [address] [place] [address] Hang Palm DDS [address] [place] [address] 09/17/2025 2:15 PM EDT Office Visit [facility] [address] [place] [address] Noman Iqbal documented as of this encounter Visit Diagnoses Not on filedocumented in this encounter
--- OUTSIDE RECORDS SUMMARY | 2025-03-21 15:03 | XMS_ITS | Encounter Summary ---
Author Organization [employer] Address [address] [place] [address] [address]t [place] [address] Care Team Providers Care Director Food And Beverage Name Role Phone Unavailable Primary Care Provider Unavailabl e Reason for Visit * Reason Comments Med Refill Encounter Details Date Type Department Care Team (Late Contact Info) Description 11/20/2024 Refill [facility] [address] [place] [address] Paulina Wahl BDS Social History Tobacco Use Types Packs/Day Years [...] encounter Miscellaneous Notes * Telephone Encounter - Balwinder Muro DMD - 11/20/2024 2:34 PM EDT Approving, but needs appt for additional refills. documented in this encounter Plan of Treatment Upcoming Encounters Date Type Department Care Team (Late Contact Info) Description 04/04/2025 2:00 PM EDT Office Visit [facility] [address] [place] [address] Hang Palm, [place] [address] [place] [address] 09/17/2025 2:15 PM EDT Office Visit [facility] [address] [place] [address] Noman Iqbal documented as of this encounter Visit Diagnoses Not on filedocumented in this encounter
--- OUTSIDE RECORDS SUMMARY | 2025-03-21 15:03 | XMS_ITS | Encounter Summary ---
Author Organization [employer] Address [address] [place] [address] 7t [place] [address] Care Team Providers Care Anesthesia Tech Name Role Phone Unavailable Primary Care Provider Unavailabl e Reason for Visit * Reason Onset Date Comments rs no show 06/29/2024 Encounter Details Date Type Department Care Team (Late Contact Info) Description 06/29/2024 Telephone [facility] [address] [place] [address] Cesia Isabel DMD rs no show Social History Tobacco Use Types Packs/Day Years [...] * Telephone Encounter - Sonia Holman - 06/29/2024 1:58 PM EST Patient called in to reschedule no show appt this morning 06/29. She said she was not feeling well.Patient has been informed with no shows that office will reach out to her to reschedule after a waiting period. Patient understood DR documented in this encounter Plan of Treatment Upcoming Encounters Date Type Department Care Team ([facility] Contact Info) Description 04/04/2025 2:00 PM EDT Office Visit [facility] [address] [place] [address] Hang Palm, [place] [address] [place] [address] 09/17/2025 2:15 PM EDT Office Visit [facility] [address] [place] [address] Noman Iqbal documented as of this encounter Visit Diagnoses Not on filedocumented in this encounter
--- OUTSIDE RECORDS SUMMARY | 2025-03-21 15:03 | XMS_ITS | Clinical Summary ---
Author Organization [employer] Address [address] [facility] 7t [place] [address] Care Team Providers Care Cartridge Loader Name Role Phone Unavailable Primary Care Provider [...] DAILY. SPIT, DO NOT RINSE. 100 g 5 Active traZODone (Desyrel) 100 MG tablet Take 100 mg by mouth if needed at bedtime for sleep. Active Active Problems Problem Noted Date Diagnosed Date Dental plaque 02/03/2024 Dental calculus 02/03/2024 Encounters Date Type Department Care Team Description 03/14/2025 1:30 PM EDT Office Visit [facility] [address] [place] [address] Noman Iqbal Dental calculus (Primary Dx) 03/11/2025 Travel 02/15/2025 Telephone [facility] [address] [place], [place] [phone] Carlee Rodney rs office cancelled from Last 3 Months Social History Tobacco [...] Sign Reading Time Taken Comments Blood Pressure 122/70 03/14/2025 1:49 PM EDT Pulse 70 03/14/2025 1:49 PM EDT Temperature - - Respiratory Rate - - Oxygen Saturation - - Inhaled Oxygen Concentration - - Weight - - Height - - Body Mass Index - - Plan of Treatment Upcoming Encounters Date Type Department Care Team (Late st Contact Info) Description 04/04/2025 2:00 PM EDT Office Visit [facility] [address] [place] [address] Hang Palm, [place] [address] [place] [address] 09/17/2025 2:15 PM EDT Office Visit [facility] [address] [place], [place] [phone] Dariancecejett Noman Health Maintenance Due Date Last Done Comments [...] 2017 HPV/Cotest 2017 COVID-19 Vaccine ( season) 2025 Influenza Vaccine (#1) 2025 07/30/2017, 2015 Dental X-Ray: Bitewings 09/08/2025 09/08/19, 06/23/2023, 12/28/2018, Additional history exists Dental Oral Exam 09/13/2025 03/14/2025, 08/2024, 02/03/2024, Additional history exists Dental Prophylaxis 09/13/2025 03/14/2025, 0 09/07/2024, 02/03/2024, Additional history exists Tobacco Screening 03/14/2026 03/14/2025 Dental X-Ray: Full Mouth 06/24/2026 06/23/2023, 03/07 [...] Procedure Name Priority Date/Time Associated Diagnosis Comments PERIODIC ORAL EVALUATION - ESTABLISHED PATIENT Routine 03/14/2025 1:30 PM EDT CASE PRESENTATION, DETAILED AND EXTENSIVE TREATMENT PLANNING Routine 03/14/2025 1:30 PM EDT ORAL HYGIENE INSTRUCTIONS Routine 2024 1:30 PM EDT PROPHYLAXIS - ADULT Routine 03/14/2025 1 :30 PM EDT BITEWINGS - 4 RADIOGRAPHIC IMAGES Routine 09/07/2024 8:00 AM EDT INTRAORAL - COMPLETE SERIES OF RADIOGRAPHIC IMAGES Routine 06/23/2023 1:00 PM EST from Last 3 Months or Most Recently Relevant to Health Maintenance Insurance [facility] MEDICAID STAND ADULT
--- OUTSIDE RECORDS SUMMARY | 2025-03-21 15:03 | XMS_ITS | Encounter Summary ---
Author Organization [employer] Address [address] [place] [address] 7t [place] [address] Care Team Providers Care House Principal Name Role Phone Unavailable Primary Care Provider Unavailabl e Reason for Visit * Reason Onset Date Comments appt change 10/11/2024 CALLED TO [facility] PTS APPT NO ANSWER SO A VOICEMAIL WAS LEFT Encounter Details Date Type Department Care Team (Late Contact Info) Description 10/11/2024 Telephone [facility] [address] [place] [address] Carlee Rodney appt change (CALLED TO [facility] PTS APPT NO ANSWER SO A VOICEMAIL WAS LEFT ) Social History Tobacco Use Types Packs/Day Years [...] encounter Miscellaneous Notes * Telephone Encounter - Katarzyna Boyer - 10/11/2024 3:36 PM EDT CALLED TO [facility] PTS APPT NO ANSWER SO A VOICEMAIL WAS LEFT documented in this encounter Plan of Treatment Upcoming Encounters Date Type Department Care Team ([facility] Contact Info) Description 04/04/2025 2:00 PM EDT Office Visit [facility] [address] [place] [address] Hang Palm, [place] [address] [place] [address] 09/17/2025 2:15 PM EDT Office Visit [facility] [address] [place] [address] Noman Iqbal documented as of this encounter Visit Diagnoses Not on filedocumented in this encounter
--- OUTSIDE RECORDS SUMMARY | 2025-03-21 15:03 | XMS_ITS | Encounter Summary ---
Author Organization [employer] Address [address] [place] [address] [address]t [place] [address] Care Team Providers Care Electronic Funds Transfer Coordinator Name Role Phone Unavailable Primary Care Provider Unavailabl e Encounter Details Date Type Department Care Team (Latest Contact Info) Description 08/25/2018 Abstract [facility] Dental, Provider, DDS Social History Tobacco Use Types Packs/Day Years Used Date Smoking Tobacco: Never Assessed Comments Unknown Sex and Gender Information Value Date Recorded Sex Assigned at Female 04/06/2022 10:22 AM EDT Legal Sex Female 10:22 AM EDT Gender Identity Female 06/23/2023 8:44 AM EST Sexual Orientation Choose not to disclose 2023 8:44 AM EST documented as of this encounter Plan of Treatment Upcoming Encounters Date Type Department Care Team (Late st Contact Info) Description 04/04/2025 2:00 PM EDT Office Visit [facility]ULT [facility] [address] [place] [address] Hang Palm, ALFR[place] [address] [place] [address] 09/17/2025 2:15 PM EDT Office Visit [facility]ULT [facility] [address] [place] [address] Noman Iqbal documented as of this encounter Visit Diagnoses Not on filedocumented in this encounter
--- OUTSIDE RECORDS SUMMARY | 2025-03-21 15:03 | XMS_ITS | Encounter Summary ---
Author Organization [employer] Address [address] [facility] 7t [place] [address] Care Team Providers Care Petroleum Refinery Laborer Name Role Phone Unavailable Primary Care Provider Unavailabl e Encounter Details Date Type Department Care Team (Late Contact Info) Description 11/10/2024 Telephone [facility] [address] [place] [address] Cesia Isabel DMD Social History Tobacco Use Types Packs/Day Years [...] * Telephone Encounter - Katarzyna Boyer - 11/10/2024 10:14 AM EDT Pt insurance is now active please call pt when something opens up documented in this encounter Plan of Treatment Upcoming Encounters Date Type Department Care Team (Late Contact Info) Description 04/04/2025 2:00 PM EDT Office Visit [facility] [address] [place] [address] Hang Palm DDS [address] [place] [address] 09/17/2025 2:15 PM EDT Office Visit [facility] D[facility] [address] [place] [address] Noman Iqbal documented as of this encounter Visit Diagnoses Not on filedocumented in this encounter
== END 2025-03-21 13:32 | disposition home or self-care (01) ==
PROVIDERS: PCP Internal Medicine; Visit Provider Physician Assistant Medical
DX: A64 Unspecified sexually transmitted disease (principal)

== ENCOUNTER 2025-03-28 15:51 | Outpatient (AMB) | payer OTHER, SELFPAY ==
[2025-03-28 15:55] VITALS: BP 112/64; PULSE 106; TEMP 37.1; O2SAT 95; BMI 36.2
--- NOTE | 2025-03-28 15:55 | AM.OFFWIN_ITS ---
Intake Vital Signs 03/28/25 15:55 Height 5 ft 5.5 in Weight 221 lb BMI 36.2 BP 112/64 Blood Pressure Location Rt brachial Position Sitting Pulse 106 H Pulse Source Pulse Oximeter Temp 98.7 F Temp Source Oral Pulse Oximetry (%) 95 Oxygen Delivery Method Room Air Intake Visit Reasons: EP - Migraine Intake Note: pt presents with need for a work note s/p migraine requring work absentee for 03/26/25 Patient Tobacco Use Status: Never used Tobacco Allergies red dye Allergy (Mild, Verified 03/28/25 16:00) unknown penicillin V Allergy (Unknown, Verified 03/28/25 16:00) family hx Do you need a note to return to daycare/school/sports/work: Yes (Needs a note stating was seen today.) HPI HPI Comments History of Present Illness Details History of Present Illness - The patient is a 40-year-old female pr esenting today for a work excuse note. - She states that she missed work on Wed due to a migraine and needs an excuse note. - She forgot to come yesterday so she ca me today. - The migraine began on Wednesday when s he woke up for work around 530 am and lasted approximately two to three hours, resolving by 8:30am. - Symptoms included nausea and sensitivi ty to light, with stress identified as a trigger. - The patient typically manages migraine s with rest, cold compresses, and a dark, quiet environment. - No associated symptoms of weakness, bl urry vision, or double vision were reported. - The patient states that the headache d id not return and she does not have one currently. - She denies [place], blurry vision, weakness , dizziness, cold symptoms, CP, SOB, or nausea. Physical Exam General: Cooperative, healthy appearing, comfortable, no acute distress and well developed Orientation: Patient oriented x3 Limitations: No limitations Head: Normal to inspection Ears: Hearing grossly normal bilaterally Nose: Normal external nose present Face and sinus: Normal facial exam Eyes: Appearance normal, both eyes and all related structures. PERRLA, EOMI. Neck: Normal visual inspection and Yes full ROM Respiratory: Normal respiratory effort and able to speak in complete sentences. Clear to auscultation bilaterally Cardiovascular: Regular rate and rhythm. Normal S1 and S2 GI: Normal to inspection. Soft to palpation and nontender Skin: No rashes or lesions noted Neuro: Patient oriented x3. CN II-XII intact. Extremities: Normal to inspection. Strength is 5/5 on UE and LE. Patient was informed and verbally consented to the use of an ambient scribe for clinic note documentation during this visit. [facility] Medical History (Updated 12/12/24 @ 09:48 by Shira Reis MD) Environmental and seasonal allergies Mixed dyslipidemia Essential hypertension Anxiety and depression Morbid obesity due to excess calories Diabetes mellitus due to underlying condition, uncontrolled, with hyperglycemia Family History Mother Diabetes mellitus Endometrial cancer Morbid obesity Dyslipidemia Anxiety and depression Essential hypertension Brother Mental health disorder Social History Housing: House Patient Tobacco Use Status: Never used Tobacco e-Cigarette/Vaping Use: Never Used service: No Current occupational status: employed Cognitive needs: No Hearing needs: No Vision needs: Yes Review of Systems Const All systems reviewed & are unremarkable except as noted in HPI and below Physical Exam Vital Signs: Last Vital Signs Temp 98.7 F 03/28/25 15:55 Pulse 106 H 03/28/25 15:55 BP 112/64 03/28/25 15:55 Pulse Ox 95 03/28/25 15:55 Oxygen Delivery Method Room Air 03/28/25 15:55 BMI result Body Mass Index 36.2 Assessment & Plan Assessment & Plan (1) Encounter to obtain excuse from work: Code(s): Z02.89 - Encounter for other administrative examinations (2) Migraine: Code(s): G43.909 - Migraine, unspecified, not intractable, without status migrainosus Qualifiers: Migraine type: without aura Status migrainosus presence: without status migrainosus Intractability: not intractable Qualified Code(s): G43.009 - Migraine without aura, not intractable, without status migrainosus Plan Most likely a visit for a missed work excuse not unsure of her migraine status as it is not on her problem list and she is not prescribed medications for this plan - The patient was advised to continue managing migraines with rest, cold compresses, and a dark, quiet environment. - No new medications or interventions were discussed during the visit. - discussed with patient that I could not excuse her from work from her day miss ed on Wednesday - did provide her a note for today's visit - needs to f/u with her PCP. Coding Level of Care Code Est Pt Level 3 (26954) Diagnoses Encounter to obtain excuse from work Z02.89 Migraine without aura and without status migrainosus, not intractable G43.009 Migraine type: without aura Status migrainosus presence: without status migrainosus Intractability: not intractable
--- OUTSIDE RECORDS SUMMARY | 2025-03-28 21:56 | XMS_ITS | Encounter Summary ---
Author Organization [employer] Address [address] [place] [address] [address] [place] [address] Care Team Providers Care Speeder Operator Name Role Phone Unavailable Primary Care Provider Unavailabl e Reason for Visit * Reason Comments Med Refill Encounter Details Date Type Department Care Team (Late Contact Info) Description 11/20/2024 Refill [facility] ADULT DENTAL [address] [place] [address] Paulina Wahl BDS Social History Tobacco Use [...] Description 04/04/2025 2:00 PM EDT Office Visit [facility] ADULT DENTAL [address] [place] [address] [place], [place] [address] [place] [address] 09/17/2025 2:15 PM EDT Office Visit [facility] ADULT DENTAL [address] [place] [address] Noman Iqbal documented as of this encounter Visit Diagnoses Not on filedocumented in this encounter
--- OUTSIDE RECORDS SUMMARY | 2025-03-28 21:56 | XMS_ITS | Encounter Summary ---
Author Organization [employer] Address [address] [place] [address] 7[address] [place] [address] Care Team Providers Care Junior Marketing Associate Name Role Phone Unavailable Primary Care Provider Unavailabl e Reason for Visit * Reason Onset Date Comments appt change 10/11/2024 CALLED TO RS PTS APPT NO ANSWER SO A VOICEMAIL WAS LEFT Encounter Details Date Type Department Care Team (Late Contact Info) Description 10/11/2024 Telephone [facility] ADULT DENTAL [address] [place] [address] Carlee Rodney appt change (CALLED TO RS [...] Upcoming Encounters Date Type Department Care Team ([facility] Contact Info) Description 04/04/2025 2:00 PM EDT Office Visit [facility] ADULT DENTAL [address] [place] [address] [place], [place] [address] [place] [address] 09/17/2025 2:15 PM EDT Office Visit [facility] ADULT DENTAL [address] [place] [address] Noman Iqbal documented as of this encounter Visit Diagnoses Not on filedocumented in this encounter
--- OUTSIDE RECORDS SUMMARY | 2025-03-28 21:56 | XMS_ITS | Clinical Summary ---
Author Organization [employer] Address [address] [facility] [address]t [place] [address] Care Team Providers Care Knit Goods Press Hand Name Role Phone Unavailable Primary Care Provider [...] Encounters Date Type Department Care Team Description 03/28/2025 Travel 03/14/2025 1:30 PM EDT Office Visit [facility] AD[facility] [address] [place] [address] Noman Iqbal Dental calculus (Primary Dx) 03/11/2025 Travel 02/15/2025 Telephone [facility] [address] [place] [address] Carlee Rodney rs office cancelled from Last [...] Office Visit [facility] [address] [place] [address] Hang Palm DDS [address] [place] [address] 09/17/2025 2:15 PM EDT Office Visit [facility] [address] [place] [address] DarianbethanyConnor wagnerouard Health Maintenance Due Date Last Done Comments [...] Most Recently Relevant to Health Maintenance Insurance [facility] MEDICAID STAND ADULT
--- OUTSIDE RECORDS SUMMARY | 2025-03-28 21:56 | XMS_ITS | Encounter Summary ---
Author Organization [employer] Address [address] [place] [address] [address] [place] [address] Care Team Providers Care Offshoring Manager Name Role Phone Unavailable Primary Care Provider Unavailabl e Reason for Visit * Reason Onset Date Comments aptp rs office cancelled 02/15/2025 Encounter Details Date Type Department Care Team (Late st Contact Info) Description 02/15/2025 Telephone [facility] ADULT DENTAL [address] [place] [address] Carlee Rodney aptp rs office cancelled Social [...] Office Visit [facility] ADULT DENTAL [address] [place] [address] Hang Palm DDS [address] [place] [address] 09/17/2025 2:15 PM EDT Office Visit [facility] ADULT DENTAL [address] [place] [address] Noman Iqbal documented as of this encounter Visit Diagnoses Not on filedocumented in this encounter
--- OUTSIDE RECORDS SUMMARY | 2025-03-28 21:56 | XMS_ITS | Encounter Summary ---
Author Organization [employer] Address [address] [facility] [address]t [place] [address] Care Team Providers Care Line Manager Name Role Phone Unavailable Primary Care Provider Unavailabl e Encounter Details Date Type Department Care Team (Late Contact Info) Description 11/10/[address] [facility] ADULT DENTAL [address] [place] [address] Cesia Isabel DMD Social History Tobacco Use [...] Description 04/04/2025 2:00 PM EDT Office Visit [facility] ADULT DENTAL [address] [place] [address] Hang Palm DDS [address] [place] [address] 09/17/2025 2:15 PM EDT Office Visit [facility] ADULT DENTAL [address] [place] [address] Noman Iqbal documented as of this encounter Visit Diagnoses Not on filedocumented in this encounter
--- OUTSIDE RECORDS SUMMARY | 2025-03-28 21:56 | XMS_ITS | Encounter Summary ---
Author Organization [employer] Address [address] [place] [address] 7[address] [place] [address] Care Team Providers Care Director Learning Services Name Role Phone Unavailable Primary Care Provider Unavailabl e Encounter Details Date Type Department Care Team (Latest Contact Info) Description 03/28/2025 Travel Social History Tobacco Use Types Packs/Day Years [...] 04/04/2025 2:00 PM EDT Office Visit [facility] ADULT D[facility] [address] [place] [address] [place], [place] [address] [place] [address] 09/17/2025 2:15 PM EDT Office Visit [facility] ADULT D[facility] [address] [place] [address] Noman Iqbal documented as of this encounter Visit Diagnoses Not on filedocumented in this encounter
--- OUTSIDE RECORDS SUMMARY | 2025-03-28 21:56 | XMS_ITS | Encounter Summary ---
Author Organization [employer] Address [address] [place] [address] 7[address] [place] [address] Care Team Providers Care Hvac Technician Residential Name Role Phone Unavailable Primary Care Provider Unavailabl e Encounter Details Date Type Department Care Team (Latest Contact Info) Description 08/25/2018 Abstract [facility] CONVERSIONS Dental, Provider, DDS Social History Tobacco [...] Description 04/04/2025 2:00 PM EDT Office Visit [facility] ADULT DENTAL [address] [place] [address] [place], [place] [address] [place] [address] 09/17/2025 2:15 PM EDT Office Visit [facility] ADULT DENTAL [address] [place] [address] Noman Iqbal documented as of this encounter Visit Diagnoses Not on filedocumented in this encounter
--- OUTSIDE RECORDS SUMMARY | 2025-03-28 21:56 | XMS_ITS | Encounter Summary ---
Author Organization [employer] Address [address] [place] [address] [address] [place] [address] Care Team Providers Care Medical Consultant Name Role Phone Unavailable Primary Care Provider Unavailabl e Reason for Visit * Reason Onset Date Comments rs no show 06/29/2024 Encounter Details Date Type Department Care Team (Late Contact Info) Description 06/29/2024 Telephone [facility] ADULT DENTAL [address] [place] [address] Cesia Isabel DMD rs no show Social [...] Upcoming Encounters Date Type Department Care Team ([facility] Contact Info) Description 04/04/2025 2:00 PM EDT Office Visit [facility] ADULT DENTAL [address] [place] [address] [place], [place] [address] [place] [address] 09/17/2025 2:15 PM EDT Office Visit [facility] ADULT DENTAL [address] [place] [address] Noman Iqbal documented as of this encounter Visit Diagnoses Not on filedocumented in this encounter
== END 2025-03-28 16:33 | disposition home or self-care (01) ==
PROVIDERS: PCP Internal Medicine; Visit Provider Physician Assistant Medical
DX: G43.009 Migraine without aura, not intractable, without status migrainosus (principal)

== ENCOUNTER → 2025-03-28 15:51 | Outpatient (BNVA) | payer OTHER, SELFPAY | PROVIDERS: PCP Internal Medicine; Visit Provider Physician Assistant Medical | DX: G43.009 Migraine without aura, not intractable, without status migrainosus (principal); Z02.89 Encounter for other administrative examinations | CPT/HCPCS: 99212 ==